=== PATIENT | male | born 1965 | race Caucasian/White ===

== ENCOUNTER → 2020-01-25 | Day surgery (SDC) | payer OTHER ==
--- NOTE | 2020-01-24 11:20 | Pre Op History & Physical ---
DATE OF SURGERY: January 25, 2020. CHIEF COMPLAINT: Lesion in the right tonsil. HISTORY OF PRESENT ILLNESS: This 54-year-old male was noted to have a lesion in the right tonsil for a few months. The lesion has been persistent. The patient has no dysphagia or odynophagia. He has no weight changes. The patient denies any hoarseness. The patient is a nonsmoker and nondrinker. REVIEW OF SYSTEMS: System review showed no recent cardiovascular, respiratory, or GI problem. PAST MEDICAL HISTORY: The patient has type 2 diabetes and hypertension. PAST SURGICAL HISTORY: He has no previous surgery. ALLERGIES: HE HAS NO KNOWN ALLERGY TO MEDICATIONS. MEDICATIONS: He is on: 1. Levemir. 2. Victoza. 3. Hydrochlorothiazide. 4. Farxiga. 5. Glimepiride. 6. Aspirin. SOCIAL HISTORY: He is a nonsmoker and nondrinker. FAMILY HISTORY: Noncontributory. PHYSICAL EXAMINATION: VITAL SIGNS: The patient's vital signs were within normal limits. HEENT: Ear exam showed normal tympanic membranes bilaterally. Nasal exam showed deviated nasal septum on the right side about 20%. Oropharynx and oral cavity showed a lesion in the right tonsil in the superior portion. No lesion was noted on the left side. NECK: Showed no lymph node or thyroid palpable. CHEST: Showed good air entry bilaterally. CARDIOVASCULAR: Showed S1 and S2. No murmur noted. ASSESSMENT AND PLAN: Mr. Garcia has lesion in the right tonsil, which has been resistant to conservative therapy. Suggested treatment is right tonsillectomy, possible bilateral tonsillectomy and other necessary procedure with panendoscopy and biopsy. The complication of procedure includes, but not limited to bleeding, infection, hypernasal speech, nasal regurgitation of food, airway distress, recurrence of the sore throat along with perforation of the esophagus, pneumomediastinum, mediastinitis, airway compromise, persistent recurrence of the problem. Alternatives will be continue observation, continue antibiotic therapy, topical nasal steroid therapy, systemic steroid therapy, decongestant, and biopsy of the lesion in the office setting. The patient has been advised to stop his aspirin at least 7 to 10 days before surgery. The patient has elected to undergo surgical procedure. MD SILVA Hillman/VERNONL /[id number] cc: Aleksandra Seth MD
[~2020-01-25] MED LIST: ACETAMINOPHEN 1000 MG/100 ML 100 ML IV ONE; ACETAMINOPHEN 1000 MG/100 ML IV ONE; ASPIR 8181 MG PO; BUPIVACAINE HCL 0.5% INJ 30 ML VIAL INJ ONE; DEXAMETHASONE SOD PHOS INJ 4 MG/ML VIAL ONE; FARXIGA5 MG PO; FENTANYL CITRATE/PF 100MCG/2 ML INJ ONE; GLIMEPIRIDE2 MG PO; HYDRALAZINE HCL 20 MG/ML VIAL ONE; HYDROCHLOROTHIA25 MG PO; LABETALOL HCL 5 MG/ML 20ML VIAL ONE; LEVEMIR100 UNIT/1 SQ; LIDOCAINE 1% W/EPINEPHRINE 20 ML VIAL ONE; LIDOCAINE HCL (LTA) 4 ML SOLN ONE; LIDOCAINE HCL 2% LOCAL INJ 5 ML SDV VIAL INJ ONE; MIDAZOLAM HCL 2 MG/2 ML VIAL ONE; ONDANSETRON HCL INJ 2MG/ML 2ML 2 MG/ML VIAL ONE; PROPOFOL IV EMULSION 10 MG/ML 20 ML VIAL ONE; ROCURONIUM BROMIDE 10 MG/ML 5ML VIAL ONE; SEVOFLURANE INHAL SOLN 250 ML PEN BTL ONE
[2020-01-25 07:09] LABS: ANION GAP 12.6 mmol/L (8-16); BLOOD UREA NITROGEN 19 mg/dL (7-26); BUN/CREATININE RATIO 17 (6-25); CALCIUM 9.8 mg/dL (8.4-10.2); CARBON DIOXIDE 25 mmol/L (22-29); CHLORIDE 108 mmol/L (98-107); CREATININE, SERUM 1.14 mg/dL (0.72-1.25); EST GLOMERULAR FILTRATION RATE > 60 ML/MIN (60-); GLUCOSE 162 mg/dL (74-118); POTASSIUM 4.6 mmol/L (3.5-5.1); SODIUM 141 mmol/L (136-145)
[2020-01-25 09:45] VITALS: BP 153/79
--- NOTE | 2020-01-25 12:21 | Operative Report ---
DATE OF PROCEDURE: 01/25/2020 SURGEON: Sudarshan Dillard MD CHIEF COMPLAINT: Lesion in the right tonsil. POSTOPERATIVE DIAGNOSIS: Lesion in the right tonsil. OPERATIVE PROCEDURE: Tonsillectomy. ANESTHESIA: [facility]. INDICATIONS: This 54-year-old male was noted to have a lesion in the upper part of the tonsils for the past 6 months. The lesion has been treated with antibiotics with no improvement. The patient has no trauma to the area. After discussion with the patient, the patient wanted to have an excision of biopsy and he has elected to have bilateral tonsils removed. DESCRIPTION OF PROCEDURE: The patient was taken to the operating room put under general anesthesia, endotracheally intubated. The patient was put in Jesenia position, McIvor mouth gag was inserted. The tonsil fossas were injected with 1% Xylocaine with 1:100,000 epinephrine for hemostasis. The right tonsil was retracted medially. A tonsil fossas were injected with 1% Xylocaine with 1:100,000 epinephrine for hemostasis. The right tonsil was retracted medially. A plane was created between the tonsil and tonsillar bed. Dissection was carried on the inferior pole, tonsil was snared off. The left tonsil was retracted medially. A plane was created between the tonsil and tonsillar bed. Dissection was carried down the inferior pole. The left tonsil was snared off. Hemostasis in tonsillar fossas was achieved using the suction cautery. Nasopharynx, oropharynx, and oral cavity were irrigated with copious amount of normal saline. The stomach was suctioned out at the end of procedure. Re-examination of the oropharynx and oral cavity, no other abnormality was noted. The patient was able to be transferred to recovery room in stable condition. He was given 20 mg of Decadron intraoperatively. Sudarshan Dillard MD DK/MODL /[id number] cc: Aleksandra Seth MD
== END | disposition home or self-care (01) ==
LOC: OR 05:49
PROVIDERS: ATTEND Otolaryngology Otolaryngology/Facial Plastic Surgery
DX: J35.8 Other chronic diseases of tonsils and adenoids (principal); A42.9 Actinomycosis, unspecified; G47.33 Obstructive sleep apnea (adult) (pediatric); E11.9 Type 2 diabetes mellitus without complications; I10 Essential (primary) hypertension; Z79.82 Long term (current) use of aspirin; Z79.84 Long term (current) use of oral hypoglycemic drugs
CPT/HCPCS: 36415; 42826; 80048; 82948; 88304; 93005; J0131; J0360; J1100; J2001; J2250; J2405; J2704; J3010; J3490